=== PATIENT | female | born 1955 | race Caucasian/White ===

== ENCOUNTER 2024-11-11 10:14 | Day surgery (SDC) | payer MEDICARE, OTHER ==
[~2024-11-11] VITALS: Ht 162.6 cm; Wt 91.0 kg
[~2024-11-11 10:14] MED LIST: ALBU90OI6 INH; AMIT10 PO; CALCA500CH PO; CALCIUM 600 MG PO; ESCI10 PO; FERR325 PO; FISH OIL PO; GLUC PO; HCTZ PO; LEVSOD50 PO; LEVSOD75 PO; LORA10ER PO; MELO7.5 PO; MULVITA PO; PROACE100 PO; STOMUL PO; Sudogest60 MG; TOCO400 PO; VITAMIN B 50 PO; VITAMIN D3 PO; ZOLP10; [UNRECOGNIZED DRUG - OTHER] PO
[2024-11-11] MEDS ORDERED: EUTHYROX75 MC1 (10:39)
[2024-11-11] MEDS ORDERED: MULVITA (10:40)
[2024-11-11] MEDS ORDERED: IBUP200 (10:40)
[2024-11-11 13:06] VITALS: BP 108/84
== END 2024-11-11 13:13 | disposition home or self-care (01) ==
LOC: ORSCSDS 10:14
PROVIDERS: Specialist
PROC: 0DJD8ZZ Inspection of Lower Intestinal Tract, Via Natural or Artificial Opening Endoscopic (ICD-10-PCS; principal; 2024-11-11 11:30)
DX: Z12.11 Encounter for screening for malignant neoplasm of colon (principal); Z80.0 Family history of malignant neoplasm of digestive organs; K64.8 Other hemorrhoids; K57.30 Diverticulosis of large intestine without perforation or abscess without bleeding; E03.9 Hypothyroidism, unspecified; R60.0 Localized edema; Z79.899 Other long term (current) drug therapy
CPT/HCPCS: J2704; J7120